=== PATIENT | female | born 1950 | race Caucasian/White ===

== ENCOUNTER → 2018-01-21 08:54 | Outpatient (CLI) | payer MEDICARE, OTHER ==
[2013-03-17 08:37] VITALS: BMI 36.6
== END | disposition home or self-care (01) ==
LOC: D.RAD 08:54
DX: R19.7 Diarrhea, unspecified (principal)

== ENCOUNTER → 2018-04-04 08:29 | Outpatient (CLI) | payer MEDICARE, OTHER ==
[2013-03-17 08:37] VITALS: BMI 36.6
[2018-04-04 10:49] LABS: ALBUMIN 3.5 g/dL (3.4-5.0); BILIRUBIN - DIRECT 0.08 mg/dL (0.00-0.30); BILIRUBIN - INDIRECT 0.22 mg/dL (0.00-1.00); BILIRUBIN - TOTAL 0.3 mg/dL (0.2-1.3); PROTEIN - SERUM 6.6 g/dL (6.4-8.2)
== END | disposition home or self-care (01) ==
LOC: D.US 08:29
PROVIDERS: Internal Medicine Gastroenterology
DX: K76.0 Fatty (change of) liver, not elsewhere classified (principal)

== ENCOUNTER → 2018-10-06 07:45 | Outpatient (CLI) | payer MEDICARE, OTHER ==
[2013-03-17 08:37] VITALS: BMI 36.6
[~2018-10-06 07:45] MED LIST: LOMOTIL 2.5-0.1 EAC1 PO; PEPCID40 MG; SYNTHROID150 MCG; TENORMIN50 MG; ZOLOFT100 MG
[2018-10-06 09:00] LABS: ALBUMIN 3.5 g/dL (3.4-5.0); BILIRUBIN - DIRECT 0.15 mg/dL (0.00-0.30); BILIRUBIN - INDIRECT 0.31 mg/dL (0.00-1.00); BILIRUBIN - TOTAL 0.46 mg/dL (0.2-1.3)
[2018-10-10 16:16] LABS: OVA + PARASITE EXAM Final report (())
== END | disposition home or self-care (01) ==
LOC: D.US 07:45
PROVIDERS: Internal Medicine Gastroenterology
DX: K76.0 Fatty (change of) liver, not elsewhere classified (principal)

== ENCOUNTER 2018-10-06 17:28 | Emergency (ER) | payer MEDICARE, OTHER ==
[~2018-10-06] VITALS: Ht 165.1 cm; Wt 95.3 kg
[2018-10-06 17:37] VITALS: Ht 165.1 cm; Wt 95.3 kg
[2018-10-06] MEDS ORDERED: ZOLOFT100 MG (17:39)
[2018-10-06] MEDS ORDERED: TENORMIN50 MG (17:39)
[2018-10-06] MEDS ORDERED: PEPCID40 MG (17:39)
[2018-10-06] MEDS ORDERED: SYNTHROID150 MCG (17:39)
[2018-10-06 18:12] LABS: BASOPHILS 0.1 % (0-2); EOSINOPHILS 0.6 % (0-7); HEMATOCRIT 41.7 % (36.0-48.0); IMMATURE GRANULOCYTES 0.1 % (0-5); MCH 29.1 pg (26.0-34.0); MCHC 33.6 g/dL (31.0-37.0); MCV 86.7 fL (80.0-100.0); MEAN PLATELET VOLUME 10.3 fL (7.4-10.4); MONOCYTES 8.1 % (2-11); NEUTROPHILS 84.1 % (40-80); PLATELET COUNT 202 10x3/uL (130-400); RBC 4.81 10x6/uL (4.00-5.40); RDW 13.7 % (11.5-14.5); WBC 11.4 10x3/uL (4.8-10.8)
[2018-10-06 18:38] LABS: ALBUMIN 3.9 g/dL (3.4-5.0); ALKALINE PHOSPHATASE 67 U/L (46-116); ALT (SGPT) 30 U/L (10-68); BILIRUBIN - TOTAL 0.32 mg/dL (0.2-1.3); CALC OSMOLALITY 283 mosm/kg (275-300); CALCIUM 9.2 mg/dL (8.5-10.1); CARBON DIOXIDE 23.5 mmol/L (21.0-32.0); CHLORIDE - SERUM 104 mmol/L (98-107); CREATININE - SERUM 0.6 mg/dL (0.6-1.3); GLUCOSE 116 mg/dL (74-106); POTASSIUM - SERUM 3.9 mmol/L (3.5-5.1); PROTEIN - SERUM 7.2 g/dL (6.4-8.2); SODIUM 141 mmol/L (136-145); UREA NITROGEN 17 mg/dL (7-18); eGFR NON AFRICAN AMERICAN > 90 mL/min (90-120)
[2018-10-06 21:34] LABS: APPEARANCE CLEAR (CLEAR); BILIRUBIN NEGATIVE (NEGATIVE); COLOR YELLOW (YELLOW); GLUCOSE NEGATIVE (NEGATIVE); KETONE NEGATIVE (NEGATIVE); NITRITE NEGATIVE (NEGATIVE); PROTEIN NEGATIVE (NEGATIVE); UROBILINOGEN NORMAL (NORMAL)
[2018-10-06 21:38] LABS: BACTERIA FEW /hpf (NONE SEEN); RED CELLS - URINE OCC /hpf (0-5); WHITE CELLS - URINE OCC /hpf (0-5)
[2018-10-06] MEDS ORDERED: LOMOTIL 2.5-0.1 EAC1 PO (21:41)
[2018-10-06 22:01] VITALS: BP 152/61
== END 2018-10-06 22:02 | disposition home or self-care (01) ==
LOC: D.ER 17:28
PROVIDERS: Family Medicine
DX: R19.7 Diarrhea, unspecified (principal); K57.90 Diverticulosis of intestine, part unspecified, without perforation or abscess without bleeding; I10 Essential (primary) hypertension

== ENCOUNTER → 2018-11-17 12:52 | Outpatient (CLI) | payer MEDICARE, OTHER | END | disposition home or self-care (01) | LOC: D.LABREF 12:52 | DX: R19.7 Diarrhea, unspecified (principal) ==

== ENCOUNTER → 2018-11-17 12:57 | Outpatient (CLI) | payer MEDICARE, OTHER ==
[2018-11-20 16:14] LABS: OVA + PARASITE EXAM Final report (())
== END | disposition home or self-care (01) ==
LOC: D.LABREF 12:57
PROVIDERS: Family Medicine Adult Medicine
DX: K52.9 Noninfective gastroenteritis and colitis, unspecified (principal)

== ENCOUNTER 2020-02-04 05:35 | Day surgery (SDC) | payer MEDICARE, OTHER ==
[2020-02-02 12:05] LABS: HEMATOCRIT 42.7 % (36.0-48.0); HEMOGLOBIN 14.3 g/dL (12-16); MCHC 33.5 g/dL (31.0-37.0); MCV 86.6 fL (80.0-100.0); RBC 4.93 10x6/uL (4.00-5.40); RDW 14.3 % (11.5-14.5); WBC 5.5 10x3/uL (4.8-10.8)
[~2020-02-04] VITALS: Ht 292.1 cm; Wt 103.4 kg
[~2020-02-04 05:35] MED LIST changes: -SYNTHROID150 MCG; +SYNTHROID150 MCG PO; -TENORMIN50 MG; +TENORMIN50 MG PO
[2020-02-04 06:18] VITALS: BP 152/61; Ht 292.1 cm; Wt 103.4 kg
--- NOTE | 2020-02-04 06:38 | NUR ---
DR. JEREZ NOTIFED AND REVIEWED PT'S BEHAVIORN AND RESULTS. PT IS A LOW RISK PER DR. JEREZ. DR. JEREZ STATED TO GIVE RESOURCES TO PT AT TIMES OF DISCHARGE. NO FURTHER ORDERS AT THIS TIME. RESOURCES REVIEWED WITH PT AND SHE VERBALIZED UNDERSTANDING.
[2020-02-04] MEDS ORDERED: HYDROCODON-ACE1 EA10 PO (07:36)
--- NOTE | 2020-02-04 08:38 | OP ---
PATIENT NAME: RAVEN ARANGO MEDICAL RECORD: [id number] :48 LOCATION:[facility] ADMISSION DATE: SURGEON: MERYL STALEY MD DATE OF OPERATION: 02/04/2020 PREOPERATIVE DIAGNOSIS: Trigger finger of the ring finger. POSTOPERATIVE DIAGNOSIS: Trigger finger of the ring finger. PROCEDURE: Right trigger finger release. SURGEON: Meryl Staley MD ANESTHESIA: LMA. INTRAOPERATIVE COMPLICATIONS: None. SUMMARY OF PATHOLOGIC FINDINGS: The patient has a very tight A1 nataly consistent with preoperative diagnosis. Excoriation was seen of the flexor mass; however, no full-thickness tearing was noted. OPERATIVE SUMMARY IN DETAIL: After obtaining the appropriate preoperative orthopedic surgery consent as well as anesthetic consultation, evaluation and clearance, the patient was brought to the operating room and placed on the operating table in supine position. After adequate general laryngeal mask airway was administered, tourniquet was placed about the proximal aspect of the right upper extremity. Right upper extremity was then prepped and draped in routine sterile fashion. The arm was elevated and exsanguinated, and tourniquet was inflated to 250 mmHg. Appropriate timeout was taken and agreed upon by all given the patient's unique identifiers. Incision was made in the mid palmar crease in line with the 4th metacarpal, taken down to the level of the A1 nataly, which was identified. The common digital nerves were retracted and the A1 nataly was incised in its entirety. The tendon was inspected. Wound was then irrigated and closed with 4-0 Prolene in routine interrupted fashion. The area was locally anesthetized with 0.25% Marcaine plain. Tourniquet was deflated. Sterile dressings were applied. The patient was awakened and taken to recovery room in stable condition. All final needle and sponge counts were correct. TRANSINT:[id number] Voice Confirmation ID: [id number] DOCUMENT ID: [id number] MERYL STALEY MD at 0838 CC: [id number] DICTATION DATE: 02/04/20 0748 REGIONAL PROJECT MANAGER: 02/04/20 0810 [facility] [address] [place] [address]
--- NOTE | 2020-02-04 08:57 | NUR ---
PATIENT AMBULATING WITHOUT DIZZINESS OR UNSTEADINESS. LEFT HAND PIV DC'D WITH TIP INTACT. PATIENT DRESSING IN PERSONAL CLOTHING, DISCHARGE INSTRUCTIONS REVIEWED WITH PATIENT [id number] DISCHARGED HOME VIA WHEELCHAIR TO PRIVATE VEHICLE WITH SPOUSE
== END 2020-02-04 09:01 | disposition home or self-care (01) ==
LOC: D.OPS 05:35 → D.PAN 07:30 → D.OPS 09:01 → D.PAN 09:45 → D.OPS 09:45
PROVIDERS: Anesthesiology; ATTEND Orthopaedic Surgery
DX: M65.341 Trigger finger, right ring finger (principal); K21.9 Gastro-esophageal reflux disease without esophagitis; I10 Essential (primary) hypertension; E07.9 Disorder of thyroid, unspecified; M25.561 Pain in right knee; S83.241A Other tear of medial meniscus, current injury, right knee, initial encounter; M17.11 Unilateral primary osteoarthritis, right knee; X58.XXXA Exposure to other specified factors, initial encounter

== ENCOUNTER 2020-06-14 11:10 | Emergency (ER) | payer MEDICARE, OTHER ==
[~2020-06-14] VITALS: Ht 165.1 cm; Wt 102.3 kg
[~2020-06-14 11:10] MED LIST changes: +HYDROCODON-ACE1 EA10 PO
[2020-06-14 11:52] VITALS: Ht 165.1 cm; Wt 102.3 kg
[2020-06-14] MEDS ORDERED: PEPCID40 MG PO (11:55)
[2020-06-14 12:30] LABS: HEMATOCRIT 41.6 % (36.0-48.0); HEMOGLOBIN 13.6 g/dL (12-16); LYMPHOCYTES 18.6 % (15-50); MCH 28.9 pg (26.0-34.0); MCHC 32.7 g/dL (31.0-37.0); MCV 88.3 fL (80.0-100.0); MEAN PLATELET VOLUME 10.8 fL (7.4-10.4); NEUTROPHILS 67.2 % (40-80); PLATELET COUNT 218 10x3/uL (130-400); RBC 4.71 10x6/uL (4.00-5.40); RDW 13.1 % (11.5-14.5)
[2020-06-14 12:48] LABS: BILIRUBIN NEGATIVE (NEGATIVE); GLUCOSE NEGATIVE (NEGATIVE); KETONE NEGATIVE (NEGATIVE); NITRITE NEGATIVE (NEGATIVE); SPECIFIC GRAVITY 1.025 (1.005-1.020); UROBILINOGEN NORMAL (NORMAL)
[2020-06-14 12:55] LABS: ALBUMIN 3.5 g/dL (3.4-5.0); ALKALINE PHOSPHATASE 71 U/L (30-120); ALT (SGPT) 34 U/L (10-68); AMYLASE - SERUM 32 U/L (25-115); BILIRUBIN - TOTAL 0.51 mg/dL (0.2-1.3); CALC OSMOLALITY 274 mosm/kg (275-300); CALCIUM 8.8 mg/dL (8.5-10.1); CARBON DIOXIDE 29.3 mmol/L (21.0-32.0); CHLORIDE - SERUM 103 mmol/L (98-107); CREATININE - SERUM 0.6 mg/dL (0.6-1.3); GLUCOSE 109 mg/dL (74-106); LIPASE 80 U/L (73-393); POTASSIUM - SERUM 5.3 mmol/L (3.5-5.1); SODIUM 136 mmol/L (136-145); TROPONIN-I < 0.017 ng/mL (0.000-0.060); UREA NITROGEN 19 mg/dL (7-18); eGFR NON AFRICAN AMERICAN > 90 mL/min (90-120)
[2020-06-14] MEDS ORDERED: FLAGYL500 MG PO (13:49)
[2020-06-14] MEDS ORDERED: LEVAQUIN750 MG PO (13:49)
[2020-06-14] MEDS ORDERED: HYDROCODON-ACE1 EAC7 PO (13:49)
[2020-06-14 14:49] VITALS: BP 189/79
== END 2020-06-14 14:50 | disposition home or self-care (01) ==
LOC: D.ER 11:10
PROVIDERS: Family Medicine
DX: K57.92 Diverticulitis of intestine, part unspecified, without perforation or abscess without bleeding (principal); E87.5 Hyperkalemia; E07.9 Disorder of thyroid, unspecified; K21.9 Gastro-esophageal reflux disease without esophagitis